=== PATIENT | female | born 1990 | race Caucasian/White ===

== ENCOUNTER 2021-03-25 02:31 | Inpatient (IN) | payer BC ==
[2021-03-25] VITALS (8 sets, daily range): BP systolic 95–121; BP diastolic 34–91
[~2021-03-25] VITALS: Ht 162.6 cm; Wt 112.2 kg
[2021-03-25] MEDS ORDERED: VIBRAMYCIN50 MG (02:58)
[2021-03-25] MEDS ORDERED: CLARITIN 10 MG10 MG PO (02:58)
[2021-03-25] MEDS ORDERED: MULTI-VITAMIN (02:58)
[2021-03-25] MEDS ORDERED: VIT (02:59)
[2021-03-25 03:20] LABS: BASOPHILS 0.5 % (0-2); EOSINOPHILS 0 % (0-7); HEMATOCRIT 41.5 % (36.0-48.0); HEMOGLOBIN 13.5 g/dL (12-16); LYMPHOCYTES 9.2 % (15-50); MCH 25.2 pg (26.0-34.0); MCHC 32.5 g/dL (31.0-37.0); MCV 77.5 fL (80.0-100.0); MEAN PLATELET VOLUME 8.7 fL (7.4-10.4); MONOCYTES 2.8 % (2-11); NEUTROPHILS 87.5 % (40-80); PLATELET COUNT 222 10x3/uL (130-400); RBC 5.35 10x6/uL (4.00-5.40); RDW 15.4 % (11.5-14.5); WBC 6.9 10x3/uL (4.8-10.8)
[2021-03-25 03:31] LABS: CALC OSMOLALITY 277 mosm/kg (275-300); CALCIUM 8.4 mg/dL (8.5-10.1); CARBON DIOXIDE 26.6 mmol/L (21.0-32.0); CHLORIDE - SERUM 103 mmol/L (98-107); CREATININE - SERUM 0.7 mg/dL (0.6-1.3); GLUCOSE 110 mg/dL (74-106); POTASSIUM - SERUM 3.6 mmol/L (3.5-5.1); SODIUM 139 mmol/L (136-145); UREA NITROGEN 10 mg/dL (7-18); eGFR NON AFRICAN AMERICAN > 90 mL/min (90-120)
[2021-03-25 03:45] LABS: C-REACTIVE PROTEIN 11.5 mg/dL (0.0-0.9); MAGNESIUM - SERUM 1.8 mg/dL (1.8-2.4)
[2021-03-25 03:48] LABS: ALKALINE PHOSPHATASE 67 U/L (30-120); ALT (SGPT) 81 U/L (10-68); BILIRUBIN - TOTAL 0.62 mg/dL (0.2-1.3); CKMB 0.6 U/L (0.0-3.6); CREATINE KINASE 115 UL (21-215); PRO BNP 147 pg/mL (0-125); PROTEIN - SERUM 7.3 g/dL (6.4-8.2)
[2021-03-25 03:49] LABS: TROPONIN-I < 0.017 ng/mL (0.000-0.060)
[2021-03-25 04:52] LABS: INR 1.08 (0.85-1.17); PROTIME 12.9 SECONDS (11.6-15.0)
[2021-03-25 04:53] LABS: D-DIMER-QUANTITATIVE 0.61 ug/mLFEU (0.20-0.54)
--- NOTE | 2021-03-25 06:25 | NUR ---
HELPED PT TO BEDSIDE TOILET
--- NOTE | 2021-03-25 06:55 | NUR ---
GAVE PT CHICKEN BROTH AND WATER
[2021-03-25 07:01] LABS: BILIRUBIN NEGATIVE (NEGATIVE); KETONE NEGATIVE mg/dL (< 1+); NITRITE NEGATIVE (NEGATIVE); PH 6.5 (5.0-8.0); UROBILINOGEN NORMAL mg/dL (< 2)
[2021-03-25 07:10] LABS: UDS - AMPHET NEGATIVE QUAL (NEGATIVE); UDS - BARB NEGATIVE QUAL (NEGATIVE); UDS - BENZO NEGATIVE QUAL (NEGATIVE); UDS - COCAINE NEGATIVE QUAL (NEGATIVE); UDS - OPIATE NEGATIVE QUAL (NEGATIVE); UDS - PCP NEGATIVE QUAL (NEGATIVE); UDS - THC NEGATIVE QUAL (NEGATIVE)
[2021-03-25 12:34] LABS: SARS-CoV-2 ANTIGEN POSITIVE- SARS-COV-2 (NEGATIVE)
--- NOTE | 2021-03-25 23:28 | NUR ---
PT PLACED ON BIPAP AT 60%. PT ANXIETY LEVEL IS HIGH. RT AND MYSELF STAYED WITH PT UNTIL SHE SHE WAS COMFORTABLE ENOUGH TO TOLERATE. VSS. WILL CONTINUE TO MONITOR
[2021-03-26] VITALS (38 sets, daily range): BP systolic 87–133; BP diastolic 20–85; Ht 162.6 cm; Wt 112.2 kg
[2021-03-26 05:11] LABS: BASOPHILS 0.2 % (0-2); EOSINOPHILS 0 % (0-7); HEMATOCRIT 37.3 % (36.0-48.0); HEMOGLOBIN 12.1 g/dL (12-16); LYMPHOCYTES 12.1 % (15-50); MCH 25.4 pg (26.0-34.0); MCHC 32.4 g/dL (31.0-37.0); MCV 78.6 fL (80.0-100.0); MEAN PLATELET VOLUME 8.9 fL (7.4-10.4); NEUTROPHILS 83.7 % (40-80); PLATELET COUNT 229 10x3/uL (130-400); RBC 4.75 10x6/uL (4.00-5.40); RDW 15.3 % (11.5-14.5)
[2021-03-26 05:23] LABS: ALBUMIN 2.4 g/dL (3.4-5.0); ALKALINE PHOSPHATASE 71 U/L (30-120); ALT (SGPT) 65 U/L (10-68); BILIRUBIN - TOTAL 0.41 mg/dL (0.2-1.3); CALC OSMOLALITY 279 mosm/kg (275-300); CALCIUM 7.8 mg/dL (8.5-10.1); CARBON DIOXIDE 27.8 mmol/L (21.0-32.0); CHLORIDE - SERUM 105 mmol/L (98-107); GLUCOSE 100 mg/dL (74-106); MAGNESIUM - SERUM 1.9 mg/dL (1.8-2.4); POTASSIUM - SERUM 3.8 mmol/L (3.5-5.1); PROTEIN - SERUM 6.5 g/dL (6.4-8.2); SODIUM 141 mmol/L (136-145); UREA NITROGEN 10 mg/dL (7-18); eGFR NON AFRICAN AMERICAN 77 mL/min (90-120)
[2021-03-26 05:35] LABS: CREATININE - SERUM 0.9 mg/dL (0.6-1.3)
[2021-03-26 10:12] LABS: HEPATITIS C ANTIBODY 0.1 S/CO RAT (0.0-0.9)
--- NOTE | 2021-03-26 14:08 | NUR ---
PATIENT HAS COME OFF BIPAP SEVERAL TIMES NOT FOR SURE IF SHE IS PULLING HERSELF OFF BUT REMAINS ORIENTED X4 SPEECH CLEAR SO WILL NOT TIE ARMS AT THIS POINT. MONITORING PATIENT CLOSE AND HAVE TALKED WITH NUMEROUS FAMILY MEMBERS ON THE PHONE.
--- NOTE | 2021-03-26 15:42 | NUR ---
1520 PATIENT INTUBATED BY ANESTHESIA WITH 7.5TUBE AND 22 RIGHT LIP. 4 VERSEED,100SUCCICHOLINE,200KETAMINEAND 50 ROCURONIUM USED TO INTUBATE AND ORAL NG PLACED AND PCXR DONE TO CONFIRM PLACEMENT. CALLED AND TOLD OF INTUBATION.
[2021-03-27] VITALS (43 sets, daily range): BP systolic 98–120; BP diastolic 54–78
[2021-03-27 04:42] LABS: BASOPHILS 0.2 % (0-2); EOSINOPHILS 0 % (0-7); HEMATOCRIT 39.4 % (36.0-48.0); HEMOGLOBIN 12.3 g/dL (12-16); LYMPHOCYTES 10.2 % (15-50); MCH 24.6 pg (26.0-34.0); MCHC 31.3 g/dL (31.0-37.0); MCV 78.8 fL (80.0-100.0); MONOCYTES 7.9 % (2-11); NEUTROPHILS 81.7 % (40-80); RBC 5.01 10x6/uL (4.00-5.40); RDW 15.7 % (11.5-14.5); WBC 5.5 10x3/uL (4.8-10.8)
[2021-03-27 04:47] LABS: ALBUMIN 2.4 g/dL (3.4-5.0); ALKALINE PHOSPHATASE 77 U/L (30-120); ALT (SGPT) 77 U/L (10-68); BILIRUBIN - TOTAL 0.61 mg/dL (0.2-1.3); CALCIUM 7.7 mg/dL (8.5-10.1); CARBON DIOXIDE 27.1 mmol/L (21.0-32.0); CHLORIDE - SERUM 107 mmol/L (98-107); PROTEIN - SERUM 6.5 g/dL (6.4-8.2); SODIUM 143 mmol/L (136-145)
[2021-03-27 04:48] LABS: CALC OSMOLALITY 290 mosm/kg (275-300); CREATININE - SERUM 0.6 mg/dL (0.6-1.3); GLUCOSE 187 mg/dL (74-106); MAGNESIUM - SERUM 2.7 mg/dL (1.8-2.4); POTASSIUM - SERUM 4.4 mmol/L (3.5-5.1); UREA NITROGEN 16 mg/dL (7-18); eGFR NON AFRICAN AMERICAN > 90 mL/min (90-120)
[2021-03-27 05:05] LABS: PLATELET COUNT 326 10x3/uL (130-400)
--- NOTE | 2021-03-27 07:15 | NUR ---
RECEIVED REPORT FROM ELE. PER REPORT, PT TOO UNSTABLE TO TURN AND DESATS INTO 60S FROM BOARD UNDERNEATH HER DURING CXR.
--- NOTE | 2021-03-27 09:00 | NUR ---
DR. SARAHI NICK, ORDERS RECEIVED.
--- NOTE | 2021-03-27 10:56 | NUR ---
DR. MCCLAIN NOTIFIED OF ABGS AND SATS IN 80S. NO CHANGES ORDERED.
--- NOTE | 2021-03-27 12:11 | NUR ---
DR. MUÑOZ SPOKE W/ DR. MCCLAIN AND THEY WANT TO TRANSFER FOR ECMO. SUNITA WITH CM IS WORKING ON TRANSFER.
--- NOTE | 2021-03-27 13:53 | NUR ---
Nutrition consult: Pt now intubated, sedated wtih propofol @ 45 mcg/kg/min OGT in place Labs reviewed s/p bronch 03/26 RDN received order to start TF today Will start Osmolite 1.5 cara @ 20 ml/hr with increase to goal rate of 40 ml/hr. TF at goal rate will provide: 1800 kcal, 75 gm protein ESIIMATED NEEDS: Calories: 9996-6338 Protein: 70-91 g Fluids: 8662-5759 ml Pt will closely meet est nutrition needs. RDN will follow-up on pts progress in 2-4 days.
--- NOTE | 2021-03-27 15:00 | NUR ---
TF STARTED PER ORDER.
[2021-03-27 15:29] LABS: HCG SERUM NEGATIVE (NEGATIVE)
--- NOTE | 2021-03-27 15:47 | MORECARE ---
CASE MANAGEMENT DISCHARGE SUMMARY PATIENT: TRAVON RICHARDS UNIT: [id number] ADM DATE: 03/25/21 AGE: 31 : 89 SEX: F ROOM/BED: D.[facility] AUTHOR: SHAGGYDOC PHYSICIAN: REFERRING PHYSICIAN: KRISTOPHER MUÑOZ DO DATE OF SERVICE: 03/27/21 Case Management Discharge Planning Summary DCP REVIEW SUMMARY ANTICIPATED D/C DATE: EXPECTED LOS : CASE STATUS: DCP Initiated INITIAL REVIEW: 03/25/2021 INITIAL REVIEWER: FINAL DISCHARGE DISPOSITION: : FINAL REVIEWER: FINAL REVIEW DATE: DCP Focus Questions & Answers QUESTION: ANSWER : PATIENT: TRAVON RICHARDS ENCOUNTER: [id number] MEDICAL RECORD#: [id number] ADMISSION DATE: 03/25/2021 DISCHARGE DATE: ATTENDING MD: KRISTOPHER BAEZA : AGE: 31 MARITAL STATUS: M DC PLAN ID: [id number] FACILITY: [facility] PRINTED ON: 03/27/21 15:46 CT All edits/amendments must be made on the electronic document DICTATION DATE: 03/27/21 1546 BPO SPECIALIST: DM 03/27/21 1546 RPT#: [id number] DC DATE: STATUS: ADM IN [place] [address] [place] [address] END OF REPORT
--- NOTE | 2021-03-27 15:57 | MORECARE ---
CASE MANAGEMENT DISCHARGE SUMMARY PATIENT: TRAVON RICHARDS UNIT: [id number] ADM DATE: 03/25/21 AGE: 31 : 88 SEX: F ROOM/BED: D.2316 AUTHOR: SHAGGY,DOC PHYSICIAN: REFERRING PHYSICIAN: KRISTOPHER MUÑOZ DO DATE OF SERVICE: 03/27/21 Case Management Discharge Planning Summary COMMENTS ENTERED DATE: 03/27/21 15:46 CT COMMENT TYPE: Discharge Planning REVIEWER: Roxanne Ha Late entry 11:30 CM notified by nurse, Kimberly, that MD wants patient transferred out for ECMO. CM called and spoke with [facility] to initiate request for transfer. CM faxed records as requested. CM was told that facility does not have any ECMO beds available at this time, but will put patient on waiting list. CM called [facility], Spoke with Mireille about request for Transfer. Faxed records as requested. CM was told facility is does not have any ICU beds, but will put patient on waiting list. CM called and spoke with Juana at [facility] to initiate request for Transfer for ECMO. [facility] states they can not be the destination of the transfer, because patient is an adult, but they are willing to "accept" and assist with cannulation and transfer of patient. CM called and spoke with Radha at [facility] to initiate transfer request. Faxed records as requested. CM was told [facility] did not have any ICU beds at this time, but they will put patient on waiting list. CM obtained administration approval and called [facility] to assist with finding a hospital with ECMO for patient to transfer to. Spoke with Cindi at [facility]. Faxed records as requested. Awaiting determination / acceptance. Updated Dr. Muñoz on progress of transfer request. 14:00 CM received call back from Mireille at [facility] stating they would not be able to accept patient for ECMO d/t BMI >40.0. DCP REVIEW SUMMARY ANTICIPATED D/C DATE: EXPECTED LOS : CASE STATUS: DCP Initiated INITIAL REVIEW: 03/25/2021 INITIAL REVIEWER: Roxanne Ha FINAL DISCHARGE DISPOSITION: : FINAL REVIEWER: FINAL REVIEW DATE: DCP Focus Questions & Answers QUESTION: ANSWER : PATIENT: TRAVON RICHARDS ENCOUNTER: [id number] MEDICAL RECORD#: [id number] ADMISSION DATE: 03/25/2021 DISCHARGE DATE: ATTENDING MD: KRISTOPHER BAEZA : AGE: 31 MARITAL STATUS: M DC PLAN ID: [id number] FACILITY: [facility] PRINTED ON: 03/27/21 15:57 CT All edits/amendments must be made on the electronic document DICTATION DATE: 03/27/211556 COOKEE: RISHABH 03/27/211556 RPT#: [id number] DC DATE: STATUS: ADM IN [facility] [address] [place] [address] END OF REPORT
--- NOTE | 2021-03-27 16:01 | NUR ---
DR. MUÑOZ INFORMS ME [facility] HAS EMERGENTLY ACCEPTED HER. UPDATED .
--- NOTE | 2021-03-27 16:58 | NUR ---
REPORT GIVEN TO ALEXANDRE BRIGHT RN, AT [facility]. UPDATED WITH ROOM NUMBER, UNIT PHONE NUMBER, VISITATION POLICY AND THAT THEY WON'T PAY FOR DISCHARGE TRANSPORTATION.
--- NOTE | 2021-03-27 18:10 | NUR ---
HAVING DIFFICULTY TRANSPORTING PT S/T STORMS. KEEPING IN TOUCH WITH [facility] [employer].
--- NOTE | 2021-03-27 20:13 | NUR ---
PATIENT LEFT WITH [facility]. CALLED [facility] AND SPOKE WITH NELIA PATIENTS RECEIVING NURSE (NELIA).
--- NOTE | 2021-03-27 20:22 | MORECARE ---
CASE MANAGEMENT DISCHARGE SUMMARY PATIENT: TRAVON RICHARDS UNIT: [id number] ADM DATE: 03/25/21 AGE: 31 : 88 SEX: F ROOM/BED: D.2316 AUTHOR: SHAGGY,DOC PHYSICIAN: REFERRING PHYSICIAN: KRISTOPHER MUÑOZ DO DATE OF SERVICE: 03/27/21 Case Management Discharge Planning Summary COMMENTS ENTERED DATE: 03/27/21 15:46 CT COMMENT TYPE: Discharge Planning REVIEWER: Roxanne Ha Late entry 11:30 CM notified by nurse, Kimberly, that MD wants patient transferred out for ECMO. CM called and spoke with [facility] to initiate request for transfer. CM faxed records as requested. CM was told that facility does not have any ECMO beds available at this time, but will put patient on waiting list. CM called [facility], Spoke with Mireille about request for Transfer. Faxed records as requested. CM was told facility is does not have any ICU beds, but will put patient on waiting list. CM called and spoke with Juana at [facility] to initiate request for Transfer for ECMO. [facility] states they can not be the destination of the transfer, because patient is an adult, but they are willing to "accept" and assist with cannulation and transfer of patient. CM called and spoke with Radha at [facility] to initiate transfer request. Faxed records as requested. CM was told [facility] did not have any ICU beds at this time, but they will put patient on waiting list. CM obtained administration approval and called [facility] to assist with finding a hospital with ECMO for patient to transfer to. Spoke with Cindi at [facility]. Faxed records as requested. Awaiting determination / acceptance. Updated Dr. Muñoz on progress of transfer request. 14:00 CM received call back from Mireille at [place] stating they would not be able to accept patient for ECMO d/t BMI >40.0. DCP REVIEW SUMMARY ANTICIPATED D/C DATE: EXPECTED LOS : CASE STATUS: DCP Initiated INITIAL REVIEW: 03/25/2021 INITIAL REVIEWER: Roxanne Ha FINAL DISCHARGE DISPOSITION: : FINAL REVIEWER: FINAL REVIEW DATE: DCP Focus Questions & Answers QUESTION: ANSWER : PATIENT: TRAVON RICHARDS ENCOUNTER: [id number] MEDICAL RECORD#: [id number] ADMISSION DATE: 03/25/2021 DISCHARGE DATE: 03/27/2021 ATTENDING MD: KRISTOPHER BAEZA : AGE: 31 MARITAL STATUS: M DC PLAN ID: [id number] FACILITY: [facility] PRINTED ON: 03/27/21 20:22 CT All edits/amendments must be made on the electronic document DICTATION DATE: 03/27/212020 ASSET LIABILITY ANALYST: RISHABH 03/27/212020 RPT#: [id number] DC DATE:03/27/21 STATUS: DIS IN [facility] [address] [place] [address] END OF REPORT
--- NOTE | 2021-03-27 22:28 | MORECARE ---
CASE MANAGEMENT DISCHARGE SUMMARY PATIENT: TRAVON RICHARDS UNIT: [id number] ADM DATE: 03/25/21 AGE: 31 : 88 SEX: F ROOM/BED: D.2316 AUTHOR: SHAGGY,DOC PHYSICIAN: REFERRING PHYSICIAN: KRISTOPHER MUÑOZ DO DATE OF SERVICE: 03/27/21 Case Management Discharge Planning Summary COMMENTS ENTERED DATE: 03/27/21 15:46 CT COMMENT TYPE: Discharge Planning REVIEWER: Roxanne Ha Late entry 11:30 CM notified by nurse, Kimberly, that MD wants patient transferred out for ECMO. CM called and spoke with [facility] to initiate request for transfer. CM faxed records as requested. CM was told that facility does not have any ECMO beds available at this time, but will put patient on waiting list. CM called [facility], Spoke with Mireille about request for Transfer. Faxed records as requested. CM was told facility is does not have any ICU beds, but will put patient on waiting list. CM called and spoke with Juana at [facility] to initiate request for Transfer for ECMO. [facility] states they can not be the destination of the transfer, because patient is an adult, but they are willing to "accept" and assist with cannulation and transfer of patient. CM called and spoke with Radha at [facility] to initiate transfer request. Faxed records as requested. CM was told [facility] did not have any ICU beds at this time, but they will put patient on waiting list. CM obtained administration approval and called [facility] to assist with finding a hospital with ECMO for patient to transfer to. Spoke with Cindi at [facility]. Faxed records as requested. Awaiting determination / acceptance. Updated Dr. Muñoz on progress of transfer request. 14:00 CM received call back from Mireille at [place] stating they would not be able to accept patient for ECMO d/t BMI >40.0. DCP REVIEW SUMMARY ANTICIPATED D/C DATE: EXPECTED LOS : CASE STATUS: DCP Initiated INITIAL REVIEW: 03/25/2021 INITIAL REVIEWER: Roxanne Ha FINAL DISCHARGE DISPOSITION: : FINAL REVIEWER: FINAL REVIEW DATE: DCP Focus Questions & Answers QUESTION: ANSWER : PATIENT: TRAVON RICHARDS ENCOUNTER: [id number] MEDICAL RECORD#: [id number] ADMISSION DATE: 03/25/2021 DISCHARGE DATE: 03/27/2021 ATTENDING MD: KRISTOPHER BAEZA : AGE: 31 MARITAL STATUS: M DC PLAN ID: [id number] FACILITY: [facility] PRINTED ON: 03/27/21 22:28 CT All edits/amendments must be made on the electronic document DICTATION DATE: 03/27/212227 CANDY ROLLER: RISHABH 03/27/212227 RPT#: [id number] DC DATE:03/27/21 STATUS: DIS IN [facility] [address] [place] [address] END OF REPORT
--- NOTE | 2021-03-28 11:15 | MORECARE ---
CASE MANAGEMENT DISCHARGE SUMMARY PATIENT: TRAVON RICHARDS UNIT: [id number] ADM DATE: 03/25/21 AGE: 31 : 88 SEX: F ROOM/BED: D.2316 AUTHOR: SHAGGY,DOC PHYSICIAN: REFERRING PHYSICIAN: KRISTOPHER MUÑOZ DO DATE OF SERVICE: 03/28/21 Case Management Discharge Planning Summary COMMENTS ENTERED DATE: 03/27/21 15:46 CT COMMENT TYPE: Discharge Planning REVIEWER: Roxanne Ha Late entry 11:30 CM notified by nurse, Kimberly, that MD wants patient transferred out for ECMO. CM called and spoke with [facility] to initiate request for transfer. CM faxed records as requested. CM was told that facility does not have any ECMO beds available at this time, but will put patient on waiting list. CM called [facility], Spoke with Mireille about request for Transfer. Faxed records as requested. CM was told facility is does not have any ICU beds, but will put patient on waiting list. CM called and spoke with Juana at [facility] to initiate request for Transfer for ECMO. [facility] states they can not be the destination of the transfer, because patient is an adult, but they are willing to "accept" and assist with cannulation and transfer of patient. CM called and spoke with Radha at [facility] to initiate transfer request. Faxed records as requested. CM was told [facility] did not have any ICU beds at this time, but they will put patient on waiting list. CM obtained administration approval and called [facility] to assist with finding a hospital with ECMO for patient to transfer to. Spoke with Cindi at [facility]. Faxed records as requested. Awaiting determination / acceptance. Updated Dr. Muñoz on progress of transfer request. 14:00 CM received call back from Mireille at [place] stating they would not be able to accept patient for ECMO d/t BMI >40.0. DCP REVIEW SUMMARY ANTICIPATED D/C DATE: EXPECTED LOS : CASE STATUS: DCP Initiated INITIAL REVIEW: 03/25/2021 INITIAL REVIEWER: Roxanne Ha FINAL DISCHARGE DISPOSITION: : FINAL REVIEWER: FINAL REVIEW DATE: DCP Focus Questions & Answers QUESTION: ANSWER : PATIENT: TRAVON RICHARDS ENCOUNTER: [id number] MEDICAL RECORD#: [id number] ADMISSION DATE: 03/25/2021 DISCHARGE DATE: 03/27/2021 ATTENDING MD: KRISTOPHER BAEZA : AGE: 31 MARITAL STATUS: M DC PLAN ID: [id number] FACILITY: [facility] PRINTED ON: 03/28/21 11:15 CT All edits/amendments must be made on the electronic document DICTATION DATE: 03/28/21 1115 SATURATOR: RISHABH 03/28/215 RPT#: [id number] DC DATE:03/27/21 STATUS: DIS IN [facility] [address] [place] [address] END OF REPORT
== END 2021-03-27 20:14 | disposition short-term general hospital (02) | DRG 208 ==
LOC: D.ER 02:31 → D.EDHOLD 03:50 → D.ICU 03:50
PROVIDERS: Family Medicine; Internal Medicine Pulmonary Disease; ADMIT Family Medicine; ATTEND Family Medicine
PROC: XW033E5 Introduction of Remdesivir Anti-infective into Peripheral Vein, Percutaneous Approach, New Technology Group 5 (ICD-10-PCS; principal; 2021-03-25)
PROC: 5A1945Z Respiratory Ventilation, 24-96 Consecutive Hours (ICD-10-PCS; 2021-03-26)
PROC: 0BH17EZ Insertion of Endotracheal Airway into Trachea, Via Natural or Artificial Opening (ICD-10-PCS; 2021-03-26)
DX: U07.1 COVID-19 (principal); J12.82 Pneumonia due to coronavirus disease 2019; J96.01 Acute respiratory failure with hypoxia; Z68.41 Body mass index [BMI] 40.0-44.9, adult; R74.01 Elevation of levels of liver transaminase levels; E66.01 Morbid (severe) obesity due to excess calories